=== PATIENT | female | born 1965 | race Caucasian/White ===

== ENCOUNTER 2022-08-31 06:11 | Day surgery (SDC) | payer BC, SELFPAY ==
[2022-08-31] MEDS: LACTATED RINGERS 1000 ML 1,000 ML 100 ML IV (06:35)
[2022-08-31 06:37] VITALS: BP 164/87; PULSE 61; RESP 16; TEMP 36.9; O2SAT 97
[2022-08-31 06:39] VITALS: BMI 23.8
[2022-08-31] MEDS: SODIUM CHLORIDE 0.9 % (FLUSH) 10 ML SYRINGE IVF (06:51)
--- NOTE | 2022-08-31 07:17 | W.ANESCHARGE ---
Anesthesia Charges Start Date/Time Anesthesia Start Date: 08/31/22 Stop Date/Time Anesthesia Stop Date: 08/31/22
--- NOTE | 2022-08-31 07:29 | P.GSOP_ITS ---
Operative Note Date of procedure: 08/31/22 Pre-op diagnosis: 1. Enlarging right upper quadrant mass. Post-op diagnosis: 1. Right upper quadrant abdominal wall lipoma. Type of Procedure: 1. Excision of right upper quadrant abdominal wall lipoma. Indications: 56-year-old female was seen in clinic for evaluation of a right upper quadrant abdominal wall mass that was noticed over 3 years ago. The mass was growing in size in symptoms was bothersome to the patient. On clinical exam in the right upper quadrant overlying the lower ribs and somewhat extending inferior to the lower ribs there was a soft tissue mass that was lying flat in the soft tissues. The mass was approximately 5 x 3 cm and was not very mobile. Given patient's symptoms and her physical exam, excision of this mass in the operating room was recommended. The procedure was discussed in detail. The risks associated procedure including infection, bleeding, mass recurrence were all discussed with the patient, and she agreed to proceed. Procedure Description: After discussing the risks and benefits of the procedure, the patient signed informed consent.? The operative site was marked and the patient was brought to the operating room and placed on the operating table in supine position.? Care was taken to pad the patient's pressure points.?? The patient was then sedated by anesthesia.?? The operative site was then prepped and draped in the usual sterile fashion.? A time-out was then performed. Local anesthetic was injected at the surgical site. A slightly oblique elliptical skin incision was made with a scalpel. Dermis was divided with cautery. Subcutaneous tissues were dissected around the lipoma. The lipoma was not very well defined. The central part of lipoma was first excised with cautery. The soft tissue was palpated and residual lipoma was thought to be medially and superiorly. Those parts of lipoma were excised with cautery. The total mass excised was measuring approximately 10 x 5 cm. This was sent to pathology. Additional local anesthetic was injected at the surgical site. Hemostasis was achieved with cautery. Subcutaneous fat was reapproximated with interrupted 2-0 Vicryl sutures. The dermis was closed with interrupted 3-0 Vicryl sutures. The skin was closed with a running 4-0 Monocryl stitch. Steri- Strips and sterile pressure dressing were placed over the incision. ? The patient was then woken and transported to the recovery area in stable condition. ? The patient tolerated the procedure well. Findings: Benign lipoma. Anesthesia: MAC and local Surgeon: Gay Bob MD Estimated blood loss (mL): 5 Additional Specimen Information: 1. Right upper quadrant abdominal wall mass. Condition: stable Disposition: same day
[2022-08-31] MEDS: CEFAZOLIN 2 GM INJ IVP (07:35)
[2022-08-31] MEDS: LIDOCAINE 1 % PF 30 ML 20 ML INJECTION (07:47)
[2022-08-31] MEDS: BUPIVACAINE 0.25 %/EPI 1:200K 30 ml 20 ML INJECTION (07:47)
[2022-08-31 08:27] VITALS: BP 117/70; PULSE 66; RESP 16; TEMP 36.4; O2SAT 97
--- NOTE | 2022-08-31 08:29 | W.ANESCHARGE ---
Anesthesia Charges Start Date/Time Anesthesia Start Date: 08/31/22 Anesthesia Start Time: 07:31 Stop Date/Time Anesthesia Stop Date: 08/31/22 Anesthesia Stop Time: 08:27
[2022-08-31 08:45] VITALS: BP 112/74; PULSE 66; RESP 16; TEMP 36.4; O2SAT 97
[2022-08-31 09:00] VITALS: BP 167/82; PULSE 62; RESP 16; O2SAT 97
[2022-08-31 09:05] VITALS: BP 175/77; PULSE 65; RESP 16; O2SAT 97
[2022-08-31 09:15] VITALS: BP 178/84; PULSE 66; RESP 16; O2SAT 98
== END 2022-08-31 09:30 | disposition home or self-care (01) ==
PROVIDERS: PCP Physician Assistant Medical; Visit Provider Surgery
PROC: (CPT 22903; principal; 2022-08-31 07:30)
DX: D17.1 Benign lipomatous neoplasm of skin and subcutaneous tissue of trunk (principal)
CPT/HCPCS: 22903; 400; 88305; J0690; J1100; J1885; J2001; J2405; J2704; J3010; J7120